=== PATIENT | male | born 1990 | race African-American/Black ===

== ENCOUNTER 2018-07-12 09:18 | Emergency (ER) | payer OTHER ==
[2018-07-12] MEDS ORDERED: Lidocaine 1% PF 5 ML VIAL ONE (09:37)
== END 2018-07-12 10:02 | disposition home or self-care (01) ==
LOC: ERS 09:18
DX: L02.211 Cutaneous abscess of abdominal wall (principal); E11.9 Type 2 diabetes mellitus without complications
CPT/HCPCS: 10060; J2001